=== PATIENT | female | born 1945 | race Caucasian/White ===

== ENCOUNTER 2017-12-15 08:25 | Emergency (ER) | payer MEDICARE, OTHER, SELFPAY ==
[2017-12-15 08:40] VITALS: BP 153/74; PULSE 83; RESP 18; TEMP 36.7; O2SAT 100
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
== END 2017-12-15 10:40 | disposition home or self-care (01) ==
PROVIDERS: Emergency Provider Emergency Medicine
DX: H53.8 Other visual disturbances (principal); Z77.098 Contact with and (suspected) exposure to other hazardous, chiefly nonmedicinal, chemicals; W22.8XXA Striking against or struck by other objects, initial encounter
CPT/HCPCS: 99283